=== PATIENT | male | born 1945 | race Two or more races ===

== ENCOUNTER 2020-07-19 09:39 | Outpatient (CLI) | payer MEDICARE, MEDICAID ==
--- NOTE | 2020-07-19 12:00 | Consultation ---
DATE OF CONSULTATION: 07/19/2020 CONSULTING PHYSICIAN: Tuan Johnson MD. CHIEF COMPLAINT: Referral for screening colonoscopy. PAST MEDICAL HISTORY: 1. BPH. 2. Hypertension. 3. Hypothyroidism. 4. History of partial prostatectomy for BPH. 5. Dyslipidemia. 6. History of colonic polyps. Last colonoscopy 6 years ago. 7. Depression. ALLERGIES: No known drug allergies. MEDICATIONS: Please see medication reconciliation list. SOCIAL HISTORY: The patient denies any tobacco, alcohol, or drug abuse. FAMILY HISTORY: Father had prostate cancer. REVIEW OF SYSTEMS: A 10-point review of systems was performed and pertinent positives in HPI. PHYSICAL EXAMINATION: GENERAL: A well-developed male, in no acute distress. HEENT: Normocephalic and atraumatic. Sclerae anicteric. NECK: Supple. No evidence of obvious lymphadenopathy. CARDIOVASCULAR: Regular rate and rhythm. Plus S1-S2. LUNGS: Clear to auscultation bilaterally. ABDOMEN: Positive bowel sounds. Soft and nontender. No rebound. No guarding. No peritoneal sign. EXTREMITIES: No cyanosis, no clubbing, no edema. ASSESSMENT AND PLAN: This is a 75-year-old male with history of colonic polyps, last colonoscopy over 6 years ago, needs a screening colonoscopy. The patient was given the prep. Risks and benefits of procedure was explained to him. We will schedule him for colonoscopy. Tuan Johnson M.D. DR: HEDY JOB#: [id number] CC:
[2020-07-25] MEDS ORDERED: LEVOTHYROXINE75 MCG ORAL (08:54)
[2020-07-25] MEDS ORDERED: ATORVASTATIN CA20 MG ORAL (08:54)
== END 2020-07-19 11:39 | disposition home or self-care (01) ==
LOC: PAN 09:39
DX: N40.0 Benign prostatic hyperplasia without lower urinary tract symptoms (principal); I10 Essential (primary) hypertension; E03.9 Hypothyroidism, unspecified; Z90.79 Acquired absence of other genital organ(s); E78.5 Hyperlipidemia, unspecified; Z86.010 Personal history of colon polyps; F32.9 Major depressive disorder, single episode, unspecified; Z80.42 Family history of malignant neoplasm of prostate
CPT/HCPCS: G0463

== ENCOUNTER 2020-08-09 09:17 | Outpatient (CLI) | payer MEDICARE, MEDICAID ==
[~2020-08-09 09:17] MED LIST: ATORVASTATIN CA20 MG ORAL; LEVOTHYROXINE75 MCG ORAL
[2020-08-09 09:28] VITALS: BP 127/64
--- NOTE | 2020-08-09 09:41 | General Progress Note ---
Assessment/Plan Assessment/Plan: FINDINGS: 1. Fair colonic prep. 2. Small erosions throughout the colon, status post biopsy for diagnosis. 3. Internal hemorrhoids. 4. Diverticulosis. RECOMMENDATIONS: 1. path reviewed 2. We will recommend repeat colonoscopy in 5 years. Subjective ROS Limited/Unobtainable: Yes Allergies: Coded Allergies: No Known Allergies (Unverified , 07/21/20) Objective Last 24 Hour Vital Signs Date Time Temp Pulse Resp B/P (MAP) Pulse Ox O2 Delivery O2 Flow Rate FiO2 08/09/20 09:28 98.3 61 16 127/64 (85) 96 General Appearance: no apparent distress EENT: normal ENT inspection Neck: supple Cardiovascular: normal peripheral pulses Respiratory/Chest: decreased breath sounds Abdomen: normal bowel sounds, non tender, soft Extremities: non-tender Tuan Johnson MD Aug 09, 2020 09:41
== END 2020-08-09 11:17 | disposition home or self-care (01) ==
LOC: PAN 09:17
DX: K64.8 Other hemorrhoids (principal); K57.90 Diverticulosis of intestine, part unspecified, without perforation or abscess without bleeding
CPT/HCPCS: 99212